=== PATIENT | female | born 1965 | race Caucasian/White ===

== ENCOUNTER → 2018-11-10 | Outpatient (CLI) | payer BC ==
--- NOTE | 2018-11-10 10:49 | MM ---
Reason for exam: screening (asymptomatic). Baseline mammogram. History: Patient is postmenopausal. Physical Findings: Nurse did not find any significant physical abnormalities on exam. MG Screening Mammo w CAD Bilateral CC and MLO view(s) were taken. There are scattered fibroglandular densities. There is no discrete abnormality. These results were verbally communicated with the patient and result sheet given to the patient on 11/10/18. ASSESSMENT: Negative, BI-RAD 1 RECOMMENDATION: Routine screening mammogram of both breasts in 1 year.
--- NOTE | 2018-11-10 20:42 | BD ---
EXAMINATION TYPE: Axial Bone Density DATE OF EXAM: 11/10/2018 COMPARISON: NONE CLINICAL HISTORY: 53 YR OLD FEMALE....ICD-10 CODE: Z78.0 POST MENOPAUSAL W/O HRT Height: 60.2 Weight: 194 FRAX RISK QUESTIONS: NOTHING ADDITIONAL TO NOTE HERE RISK FACTORS HISTORY OF: History of Wrist Fracture: LT WRIST AND ARM IN 2ND GRADE Family History of Osteoporosis: YES, MOTHER WITH BACK FRACTURES AND POSSIBLY HIP Postmenopausal woman: YES AT AGE 52, Frequent falls: USES CANE AND LIMPS MEDICATIONS: Thyroid Medications: YES, SYNTHROID, FOR ABOUT 20 YRS Additional Medications: CALCIUM AND VITAMIN D, Additional History: PT USING CANE, LIMPING BACK TROUBLE, NO BACK SURG/FX THOUGH EXAM MEASUREMENTS: Bone mineral densitometry was performed using the [employer] System. Bone mineral density as measured about the Lumbar spine is: ----- L1-L4(G/cm2): 1.056 T Score Values are as follows: ----- L1: -2.7 ----- L2: -3.0 ----- L3: -0.3 ----- L4: 1.3 ----- L1-L4: -1.0 Bone mineral density FIRST DEXA SCAN....BASELINE STUDY Bone mineral density about the R hip (g/cm2): 0.905 Bone mineral density about the L hip (g/cm2): 0.924 T Score values are as follows: -----R Neck: -1.0 -----L Neck: -1.1 -----R Total: -0.8 -----L Total: -0.7 Bone mineral density BASELINE STUDY FRAX%s: THERE IS A 4.6% CHANCE FOR A MAJOR OSTEOPOROTIC FX AND A 0.2% FOR HIP.....PROBABILITY FOR FX IN 10 YRS TIME IMPRESSION: Osteopenia (T Score between -2.5 and -1). There is slightly increased risk of fracture and the patient may be considered for treatment. Re-Screen 2-5 years. NOTE: T-SCORE=SD OF THE YOUNG ADULT MEAN.
== END | disposition home or self-care (01) ==
LOC: RADMAMWWP 09:24
PROVIDERS: ATTEND Family Medicine
DX: Z12.31 Encounter for screening mammogram for malignant neoplasm of breast (principal); M85.88 Other specified disorders of bone density and structure, other site; Z78.0 Asymptomatic menopausal state
CPT/HCPCS: 77067; 77080